=== PATIENT | female | born 1975 | race Caucasian/White ===

== ENCOUNTER → 2024-04-19 13:25 | Day surgery (SDC) | payer BC, SELFPAY ==
--- NOTE | 2024-04-19 13:36 | US_ITS ---
The [address] [address] Patient Name: JETHRO VICK MRN: [id number] date: 1975 Sex: F Assigned Patient Location: [place] Current Patient Location: US Accession/Order Number: [id number] Exam Date: 04/19/2024 13:40 Report Date: 04/19/2024 14:38 At the request of: GARO GARCIA Procedure: US biopsy thyroid EXAMINATION: US biopsy thyroid HISTORY: Left Cystic Mass COMPARISON: No relevant comparison available. TECHNIQUE: After obtaining informed consent, an ultrasound-guided biopsy was performed in the usual sterile manner. FINDINGS: IMAGING: Ultrasound BIOPSY NEEDLE: 25-gauge 2 inch SPECIMEN TYPE, #, LOCATION: 3 fine-needle aspirates, 4.3 cm mixed right solid and cystic nodule MEDICATION: 2 cc 1% buffered lidocaine COMPLICATIONS: None. LABORATORY: Pending pathology and molecular studies OTHER: Negative. US/US biopsy thyroid IMPRESSION: Uneventful ultrasound guided biopsy. The patient was instructed to obtain follow up care and biopsy results from the referring physician. Electronically authenticated by: DONNA LUZ Date: 04/19/2024 14:38
[2024-04-19] MEDS: LIDOCAINE HCL 1% 100 MG/10 ML MDV INJ (14:25)
[2024-04-19 15:18] VITALS: BMI 28.0
== END ==
LOC: US 13:25
PROVIDERS: Radiology Diagnostic Radiology; Visit Provider Otolaryngology
DX: E04.1 Nontoxic single thyroid nodule (principal)
CPT/HCPCS: 10005; 88173